=== PATIENT | female | born 1980 | race Caucasian/White ===

== ENCOUNTER 2024-05-31 12:46 | Emergency (ER) | payer OTHER ==
[~2024-05-31] VITALS: Ht 170.2 cm; Wt 135.7 kg
[~2024-05-31 12:46] MED LIST: DIPHENHYDRAMINE25 M2 PO; PREDNISONE20 MG PO; TYLENOL325 MG PO; ULTRAM 50MG50 MG PO
[2024-05-31] MEDS ORDERED: CEFDINIR300 MG PO (13:36)
[2024-05-31] MEDS ORDERED: IBUPROFEN200 MG PO (13:36)
[2024-05-31] MEDS: IBUPROFEN 200 MG TAB PO ONE (13:53)
[2024-05-31] MEDS ORDERED: LIDOCAINE HCL 1% LOCAL INJ 20 ML VIAL ONE (13:59)
[2024-05-31 14:04] VITALS: PULSE 87; RESP 16; TEMP 97.6; O2SAT 98
[2024-05-31] MEDS: CEFTRIAXONE 1 GM VIAL IM ONE (14:05)
[2024-05-31] MEDS: ACETAMINOPHEN 325 MG TAB PO ONE (14:05)
== END 2024-05-31 14:04 | disposition home or self-care (01) ==
LOC: FSED 12:51
DX: R05.9 Cough, unspecified (principal); J02.0 Streptococcal pharyngitis; R09.89 Other specified symptoms and signs involving the circulatory and respiratory systems; I10 Essential (primary) hypertension; E11.9 Type 2 diabetes mellitus without complications; Z11.52 Encounter for screening for COVID-19
CPT/HCPCS: 0223U; 83518; 87400; 96372; 99283; J0696; J2001

== ENCOUNTER 2024-09-01 16:15 | Emergency (ER) | payer OTHER ==
[~2024-09-01] VITALS: Ht 170.2 cm; Wt 137.1 kg
[~2024-09-01 16:15] MED LIST changes: +CEFDINIR300 MG PO; +IBUPROFEN200 MG PO
[2024-09-01 16:20] VITALS: PULSE 83; RESP 20; TEMP 97.7
[2024-09-01] MEDS ORDERED: SINGULAIR10 MG PO (17:05)
[2024-09-01] MEDS ORDERED: DILANTIN100 MG PO (17:05)
[2024-09-01] MEDS ORDERED: PROTONIX20 MG PO (17:05)
[2024-09-01] MEDS ORDERED: NEURONTIN300 MG PO (17:05)
[2024-09-01] MEDS ORDERED: GLUCOTROL XL5 MG PO (17:05)
[2024-09-01] MEDS ORDERED: FARXIGA5 MG (17:05)
[2024-09-01] MEDS ORDERED: MOUNJARO2.5 MG/0.5 (17:05)
[2024-09-01] MEDS ORDERED: AMLODIPINE BESYL5 MG PO (17:05)
[2024-09-01] MEDS ORDERED: VALSARTAN-HCTZ1 EAC2 (17:05)
[2024-09-01] MEDS ORDERED: ZITHROMAX250 MG PO (17:23)
[2024-09-01 17:28] VITALS: BP 118/65; PULSE 88; RESP 18; TEMP 97.5; O2SAT 96
== END 2024-09-01 17:34 | disposition home or self-care (01) ==
LOC: FSED 16:20
DX: H92.02 Otalgia, left ear (principal); H61.23 Impacted cerumen, bilateral; J02.9 Acute pharyngitis, unspecified; I10 Essential (primary) hypertension; E11.42 Type 2 diabetes mellitus with diabetic polyneuropathy; E66.01 Morbid (severe) obesity due to excess calories; G40.909 Epilepsy, unspecified, not intractable, without status epilepticus; K21.9 Gastro-esophageal reflux disease without esophagitis
CPT/HCPCS: 83518; 99284

== ENCOUNTER 2025-01-09 12:39 | Emergency (ER) | payer OTHER ==
[~2025-01-09] VITALS: Ht 170.2 cm; Wt 132.7 kg
[~2025-01-09 12:39] MED LIST changes: +AMLODIPINE BESYL5 MG PO; +DILANTIN100 MG PO; +FARXIGA5 MG; +GLUCOTROL XL5 MG PO; +MOUNJARO2.5 MG/0.5; +NEURONTIN300 MG PO; +PROTONIX20 MG PO; +SINGULAIR10 MG PO; +VALSARTAN-HCTZ1 EAC2; +ZITHROMAX250 MG PO
[2025-01-09 12:45] VITALS: PULSE 86; RESP 16; TEMP 97.8; O2SAT 95
[2025-01-09] MEDS ORDERED: NASACORT16.9 ML (13:01)
[2025-01-09] MEDS ORDERED: IBUPROFEN600 MG PO (13:01)
[2025-01-09] MEDS ORDERED: AZITHROMYCIN250 MG PO (13:01)
== END 2025-01-09 13:10 | disposition home or self-care (01) ==
LOC: FSED 12:44
DX: H92.02 Otalgia, left ear (principal); R09.89 Other specified symptoms and signs involving the circulatory and respiratory systems; J06.9 Acute upper respiratory infection, unspecified
CPT/HCPCS: 99284

== ENCOUNTER 2025-02-20 17:10 | Emergency (ER) | payer OTHER ==
[~2025-02-20 17:10] MED LIST changes: +AZITHROMYCIN250 MG PO; +IBUPROFEN600 MG PO; +NASACORT16.9 ML
[2025-02-20 17:20] VITALS: PULSE 81; RESP 16; TEMP 98; O2SAT 96
== END 2025-02-20 18:21 | disposition home or self-care (01) ==
LOC: FSED 17:15
DX: H61.21 Impacted cerumen, right ear (principal); I10 Essential (primary) hypertension; E11.9 Type 2 diabetes mellitus without complications; G40.909 Epilepsy, unspecified, not intractable, without status epilepticus; G62.9 Polyneuropathy, unspecified; K21.9 Gastro-esophageal reflux disease without esophagitis
CPT/HCPCS: 99284